=== PATIENT | male | born 1935 | race Caucasian/White ===

== ENCOUNTER → 2017-11-02 | Outpatient (CLI) | payer MEDICARE ==
[2017-11-02 13:02] LABS: Blood Urea Nitrogen 16 mg/dL (9-20)
--- NOTE | 2017-11-02 15:54 | CT ---
EXAMINATION TYPE: CT abdomen pelvis w con DATE OF EXAM: 11/02/2017 COMPARISON: NONE HISTORY: Right sided discomfort and bloating CT DLP: 1396 mGycm Automated exposure control for dose reduction was used. TECHNIQUE: Helical acquisition of images was performed from the lung bases through the pelvis. CONTRAST: Performed with Oral Contrast and with IV Contrast, patient injected with 100 mL of Isovue 300. FINDINGS: LUNG BASES: There is right-sided eventration and elevation of the hemidiaphragm with colonic interpos ition ventral to the anterior hepatic serosal surface on series 3 image 8 and best seen on coronal se balaji 5 image 27. This is typically an incidental finding but could be potentially symptomatic in a pa tient with right-sided abdominal pain and bloating. LIVER/GB: Cholelithiasis is seen with lamellated gallstones in the gallbladder body approaching the g allbladder neck. No common bile duct dilatation is present. PANCREAS: No significant abnormality is seen. No ductal dilatation. SPLEEN: No significant abnormality is seen. No splenomegaly. ADRENALS: No nodularity or thickening. KIDNEYS/PROSTATE/URINARY BLADDER: Partially obstructing right renal calculus within the pelvis is the major calyces converge measures 1 cm. There is right-sided uroepithelial thickening and mild bluntin g of the right-sided calyces and proximal ureter dilatation compatible with mild hydroureteronephrosi s. Additionally there is nodular impression on the urinary bladder by the grossly enlarged and hetero genous prostate gland measuring 8.1 cm in transverse dimension and containing few central zone calcif ications. However the urinary bladder is only mildly distended. There is a 3.4 cm left renal cyst from the superior pole. No left-sided hydronephrosis is seen. Right upper pole 9 mm renal cyst is also present. On delayed images there is a nondependent filling defect within the right ureter beginning within the right renal pelvis on series 7 image 40 and extending inferiorly to image 45. FREE AIR: No free air is visualized. ADENOPATHY: No greater than 1 cm short axis lymph nodes are seen within the abdomen or pelvis. OSSEOUS STRUCTURES: [id number] multilevel degenerative changes of the spine are seen. Moderate femoral acetabular arthropathy is also noted. BOWEL: Duodenal diverticulum is incidentally noted. No bowel dilatation. OTHER: Severe calcific and noncalcific atheromatous changes are seen of the abdominal aorta and its b ranches. Abdominal aorta is of normal course and caliber. IMPRESSION: 1. Partially obstructing right renal pelvic 1 cm calculus, right pelvic and proximal ureteral uroepit helial thickening, nondependent filling defect within the proximal right ureter, and mild right-sided hydroureteronephrosis. The filling defect may represent blood products however, debris, or neoplasm ureteroscopy for retrograde urogram could be performed for further evaluation. Line 2. Extensive enlargement and heterogeneity of the prostate gland measuring up to 8.1 cm with nodular impression upon the urinary bladder. No CT evidence of urinary bladder outlet obstruction. 3. Right hemidiaphragm elevation and colonic interposition, usually incidental finding. 4. Cholelithiasis.
== END | disposition home or self-care (01) ==
LOC: RADCTMAIN 12:24
PROVIDERS: ATTEND Internal Medicine
DX: N20.2 Calculus of kidney with calculus of ureter (principal); N13.30 Unspecified hydronephrosis; N40.0 Benign prostatic hyperplasia without lower urinary tract symptoms; K80.20 Calculus of gallbladder without cholecystitis without obstruction
CPT/HCPCS: 82565; 84520; 74177; 36415; Q9967

== ENCOUNTER → 2019-10-29 | Outpatient (CLI) | payer MEDICARE | END | disposition home or self-care (01) | LOC: LABWHC1 10:09 | PROVIDERS: ATTEND Internal Medicine Gastroenterology | DX: Z11.59 Encounter for screening for other viral diseases (principal) | CPT/HCPCS: 87635 ==

== ENCOUNTER 2019-10-31 07:41 | Day surgery (SDC) | payer MEDICARE ==
[2019-10-29 12:03] VITALS: BMI 23.7
[~2019-10-31 07:41] MED LIST: ACETAMINOPHEN TAB 500 MG TAB PO ONE; HEPARIN SODIUM,PORCINE 5,000 UNIT/ML 1 ML VIAL SQ ONE; Pre Op ABX Message 1 EACH MISC MISCELLANE ONE
[2019-10-31] MEDS ORDERED: LIDOCAINE 1% (10MG/ML) FOR IV START INTRADERMA PRN (07:44)
[2019-10-31] MEDS ORDERED: MIDAZOLAM 2 MG/2 ML VIAL IV PRN (07:44)
[2019-10-31] MEDS ORDERED: HYDROmorphone 0.5 MG/0.5 ML SYRINGE IVP PRN (07:44)
[2019-10-31] MEDS ORDERED: ONDANSETRON 4 MG/2 ML VIAL IVP ONE (07:44)
[2019-10-31] MEDS ORDERED: DEXAMETHASONE SOD PHOSPHATE 10 MG/ML 1 ML VIAL IV ONE (07:44)
[2019-10-31] MEDS ORDERED: LACTATED RINGERS 1,000 ML IV SCH (07:44)
[2019-10-31 08:06] VITALS: TEMP 97.9
--- NOTE | 2019-10-31 09:06 | P.GSHP ---
History of Present Illness H&P Date: 10/31/19 Chief Complaint: Right wrist skin lesion This is an 10-year-old male who's developed a inflamed erythematous dysplastic skin lesion on his right wrist. Patient since they for excision. Past Medical History Past Medical History: Coronary Artery Disease (CAD), Cancer, Diabetes Mellitus, Hyperlipidemia, Prostate Disorder Additional Past Medical History / Comment(s): mass rt wrist, problem with balance, hx kidney stones, hx skin cancer History of Any Multi-Drug Resistant Organisms: None Reported Past Surgical History: Appendectomy, Heart Catheterization With Stent, Hernia Repair Additional Past Surgical History / Comment(s): 5 cardiac stents, lithotripsy for kidney stones, skin cancer removed from face, lurdes cataracts Past Anesthesia/Blood Transfusion Reactions: No Reported Reaction Date of Last Stent Placement:: 2016 Smoking Status: Current every day smoker - Past Family History Mother Family Medical History: Cancer Medications and Allergies Home Medications Medication Instructions Recorded Confirmed Type Atenolol [Tenormin] 50 mg PO DAILY 10/29/19 10/29/19 History Finasteride [Proscar] 5 mg PO DAILY 10/29/19 10/29/19 History Isosorbide Mononitrate ER [Imdur] 60 mg PO DAILY 10/29/19 10/29/19 History Lisinopril [Zestril] 2.5 mg PO DAILY 10/29/19 10/29/19 History Simvastatin [Zocor] 40 mg PO HS 10/29/19 10/31/19 History metFORMIN HCL [Glucophage] 500 mg PO Q48H 10/29/19 10/29/19 History Allergies Allergy/AdvReac Type Severity Reaction Status Date / Time No Known Allergies Allergy Verified 10/31/19 08:07 Surgical - Exam Vital Signs Temp Pulse Resp BP Pulse Ox 97.9 F 83 17 149/75 98 10/31/19 08:05 10/31/19 08:05 10/31/19 08:05 10/31/19 08:05 10/31/19 08:05 - General well developed, well nourished, no distress - Eyes PERRL - ENT normal pinna - Respiratory normal expansion - Cardiovascular Rhythm: regular - Abdomen Abdomen: soft, non tender - Neurologic 3 cm erythematous inflamed skin lesion suspicious for cancer on the right wrist Assessment and Plan Assessment: Suspicious right wrist skin lesion. We'll perform excisional biopsy.
[2019-10-31] MEDS ORDERED: PROPOFOL 10 MG/ML 20 ML VIAL IV ONE (09:21)
[2019-10-31] MEDS ORDERED: BUPIVACAIN-EPI 0.25%-1:200,000 30 ML VIAL SQ ONE (09:25)
--- NOTE | 2019-10-31 09:56 | P.OP ---
Date of Procedure: 10/31/19 Preoperative Diagnosis: Right wrist skin lesion Postoperative Diagnosis: Right wrist skin lesion Procedure(s) Performed: Excisional biopsy right wrist skin lesion Anesthesia: MAC Surgeon: Jarad Marcus Estimated Blood Loss (ml): 5 Pathology: other (Right wrist skin lesion) Condition: stable Disposition: PACU Description of Procedure: The patient's placed on the operating table in the supine position. He received IV sedation. The right wrist skin incision was prepped and draped usual sterile fashion. The skin was anesthetized 1% local Xylocaine. Using a 15 blade the logical skin incision was made around the skin lesion. Lesion was then dissected free using left cautery. The specimens of pathology. The wound was closed with 3-0 nylon. The specimen measured 3 x 2 cm's. Patient was sent to recovery room stable condition.
[2019-10-31 10:48] VITALS: BP 112/51; PULSE 60; RESP 20
== END 2019-10-31 11:07 | disposition home or self-care (01) ==
LOC: OR 07:41
PROVIDERS: ATTEND Surgery
DX: D49.2 Neoplasm of unspecified behavior of bone, soft tissue, and skin (principal); R22.31 Localized swelling, mass and lump, right upper limb; I25.10 Atherosclerotic heart disease of native coronary artery without angina pectoris; E11.9 Type 2 diabetes mellitus without complications; E78.5 Hyperlipidemia, unspecified; N42.9 Disorder of prostate, unspecified; R26.81 Unsteadiness on feet; I25.2 Old myocardial infarction; I10 Essential (primary) hypertension; F17.210 Nicotine dependence, cigarettes, uncomplicated; Z80.9 Family history of malignant neoplasm, unspecified; Z87.442 Personal history of urinary calculi; Z85.828 Personal history of other malignant neoplasm of skin; Z95.5 Presence of coronary angioplasty implant and graft; Z98.890 Other specified postprocedural states; Z98.42 Cataract extraction status, left eye; Z98.41 Cataract extraction status, right eye; Z79.84 Long term (current) use of oral hypoglycemic drugs; Z97.2 Presence of dental prosthetic device (complete) (partial); Z79.899 Other long term (current) drug therapy
CPT/HCPCS: 11404; 88305; J1100; J2405; J2704

== ENCOUNTER → 2019-11-21 | Day surgery (SDC) | payer MEDICARE ==
[2019-11-19 11:08] VITALS: BMI 23.7
[~2019-11-21] MED LIST changes: -ACETAMINOPHEN TAB 500 MG TAB PO ONE; +DEXAMETHASONE SOD PHOSPHATE 10 MG/ML 1 ML VIAL IV ONE; -HEPARIN SODIUM,PORCINE 5,000 UNIT/ML 1 ML VIAL SQ ONE; +HYDROmorphone 0.5 MG/0.5 ML SYRINGE IVP PRN; +LACTATED RINGERS 1,000 ML IV ONE; +LACTATED RINGERS 1,000 ML IV SCH; +LIDOCAINE 1% (10MG/ML) FOR IV START INTRADERMA PRN; +MIDAZOLAM 2 MG/2 ML VIAL IV PRN; +ONDANSETRON 4 MG/2 ML VIAL IVP ONE; +fentaNYL (PF) 50 MCG/ML 2 ML AMP IV PRN
[2019-11-21 11:45] LABS: Glucose,Whole Blood 141 mg/dL (75-99)
[2019-11-21 12:00] VITALS: BP 160/70; PULSE 70; RESP 16; TEMP 97.8
== END | disposition home or self-care (01) ==
LOC: OR 11:01
PROVIDERS: ATTEND Plastic Surgery
DX: C76.41 Malignant neoplasm of right upper limb (principal); R22.9 Localized swelling, mass and lump, unspecified; Z53.8 Procedure and treatment not carried out for other reasons
CPT/HCPCS: J1100; J2405

== ENCOUNTER 2019-12-02 09:46 | Day surgery (SDC) | payer MEDICARE ==
[2019-11-28 14:15] VITALS: BMI 23.7
[~2019-12-02 09:46] MED LIST changes: -DEXAMETHASONE SOD PHOSPHATE 10 MG/ML 1 ML VIAL IV ONE; -HYDROmorphone 0.5 MG/0.5 ML SYRINGE IVP PRN; -LACTATED RINGERS 1,000 ML IV ONE; -LIDOCAINE 1% (10MG/ML) FOR IV START INTRADERMA PRN; -MIDAZOLAM 2 MG/2 ML VIAL IV PRN; -Pre Op ABX Message 1 EACH MISC MISCELLANE ONE
[2019-12-02 10:25] VITALS: RESP 16
[2019-12-02 10:37] LABS: Glucose,Whole Blood 149 mg/dL (75-99)
[2019-12-02] MEDS ORDERED: MIDAZOLAM 2 MG/2 ML VIAL ONE (10:45)
[2019-12-02] MEDS ORDERED: PROPOFOL 10 MG/ML 20 ML VIAL IV ONE (10:45)
[2019-12-02] MEDS ORDERED: fentaNYL (PF) 50 MCG/ML 2 ML AMP ONE (10:45)
[2019-12-02] MEDS ORDERED: PHENYLEPHRINE-0.9% NACL SYG 1 MG/10 ML SYRINGE ONE (10:45)
[2019-12-02] MEDS ORDERED: ePHEDrine SULFATE/0.9% NACL/PF 50 MG/5 ML SYRINGE IV ONE (10:45)
[2019-12-02] MEDS ORDERED: SUCCINYLCHOLINE CHLORIDE 100 MG/5 ML SYR IV ONE (10:45)
[2019-12-02] MEDS ORDERED: LIDOCAINE 1% INJ 10MG/ML (20 ML MDV) ONE (10:45)
[2019-12-02] MEDS ORDERED: ceFAZolin 1,000 MG VIAL IVPB ONE (11:14)
[2019-12-02 12:18] VITALS: TEMP 96.9
[2019-12-02 13:52] VITALS: BP 118/58; PULSE 77
--- NOTE | 2019-12-02 17:30 | OP ---
OPERATIVE REPORT DATE OF SURGERY: 12/02/2019. SURGEON: Dr. Wilman Callejas PREOPERATIVE DIAGNOSES: 1. Squamous cell carcinoma, right wrist. 2. Left middle finger lesion. POSTOPERATIVE DIAGNOSES: 1. Squamous cell carcinoma, right wrist. 2. Left middle finger lesion. OPERATIVE PROCEDURES: 1. Wide excision of squamous cell carcinoma of the right wrist. 2. Application of substitute skin graft, right wrist, 24 square cm. 3. Excision 5 mm left middle finger skin lesion with direct repair. OPERATIVE INDICATIONS: The patient is an 84-year-old male referred to my care after he underwent excision of a lesion of his right wrist that pathology revealed to be squamous cell skin cancer with positive margins. The patient was seen and evaluated in the office for this lesion and counseled to undergo wide excision today with additional margins and, due to the location and size, required surgery. Direct closure was not possible. A substitute skin graft will be placed and likely followed by delayed split-thickness skin graft for closure. Additionally, the patient requested treatment for a left middle finger skin lesion that has been present for several months. He feels he may have injured himself with a thorn, but cannot be sure; he has not had other lesions of this kind. It enlarged to a point that has not changed. He understands this lesion will undergo direct excision with primary closure. He understands there are potential risks and complications associated with surgery and has requested I perform today's surgeries. OPERATIVE PROCEDURE SUMMARY: The patient was seen in the presurgical area, markings made, procedure reviewed, all questions answered. He was transported to the operating room, where general endotracheal anesthesia was established. He was then prepped and draped in the usual fashion. The left middle finger skin lesion was excised first. It was located just distal to the DIP joint on the radial aspect of the left middle finger measuring 5 mm in diameter. It was outlined in elliptical fashion and directly excised after first prepping and draping. Once prepping and draping was completed, the lesion was excised in elliptical fashion with a 15-blade scalpel and sent to Pathology. Hemostasis was maintained with direct pressure. Then this site was primarily closed with interrupted 5-0 Prolene, cleansed with saline, and a Band-Aid placed for postoperative bandage. The patient's right upper extremity was now prepped and draped in sterile fashion. The right wrist cancer biopsy site was located on the dorsal ulnar side and measured 4 x 2 square cm, encompassing the central wound with stitches remaining, surrounding erythema. A margin was obtained around the lesion of 1 cm. The excision area measured 6 x 4 square cm. Using a 10-blade scalpel, full-thickness skin incision was made. Then using the scalpel and cautery dissection, the lesion was excised off the underlying muscle fascial layer and sent to Pathology. The lesion was oriented for evaluation with a short suture placed distal and a long suture placed ulnar. Hemostasis in the wound bed was maintained with cauterization and direct pressure. Excellent hemostasis was obtained. Irrigation was performed. The open wound measured 6 x 4 square cm. The planned Integra bilaminar wound matrix was unfortunately unavailable at the time of surgery. SurgiMend Thin was opened on the field. The product was revitalized with room-temperature saline. Once the product measured 4 x 7 square cm, the SurgiMend was applied to the open wound bed and secured using interrupted 5-0 Prolene suture, trimming this SurgiMend to optimize the inset. This was followed by placement of a postoperative graft bandage using the silicone contact layer bolster with Aquacel Ag followed by 4 x 4 secured Kerlix wrap and Tripp from hand to just below elbow. Then the patient was awakened from his anesthetic, extubated and transferred to the recovery room in good condition with stable vital signs. The estimated blood loss was 10 mL. There were no complications. MMODL / IJN: [id number] /
== END 2019-12-02 14:32 | disposition home or self-care (01) ==
LOC: OR 09:46
PROVIDERS: ATTEND Plastic Surgery
DX: C44.622 Squamous cell carcinoma of skin of right upper limb, including shoulder (principal); B07.9 Viral wart, unspecified; I25.10 Atherosclerotic heart disease of native coronary artery without angina pectoris; E11.9 Type 2 diabetes mellitus without complications; F17.210 Nicotine dependence, cigarettes, uncomplicated; K08.109 Complete loss of teeth, unspecified cause, unspecified class; I10 Essential (primary) hypertension; E78.5 Hyperlipidemia, unspecified; Z90.49 Acquired absence of other specified parts of digestive tract; Z98.890 Other specified postprocedural states; Z95.5 Presence of coronary angioplasty implant and graft; Z87.442 Personal history of urinary calculi; Z79.899 Other long term (current) drug therapy; Z79.84 Long term (current) use of oral hypoglycemic drugs
CPT/HCPCS: 11420; 11626; C5271; C5272; 88305

== ENCOUNTER 2020-05-25 23:21 | Emergency (ER) | payer MEDICARE ==
--- NOTE | 2020-05-26 00:06 | ED ---
Male Urogenital HPI - General Chief complaint: Urogenital Stated complaint: Urine Retention Time Seen by Provider: 05/25/20 23:28 Source: patient Mode of arrival: ambulatory Limitations: no limitations - History of Present Illness Initial comments: 84-year-old male patient presents to the emergency department today for evaluation of urinary retention. Patient states he's been having difficulty urinating since early this morning. States he has had some small amounts of urine output but it has decreased drastically this evening. States he is having a lot of discomfort to the lower abdomen into the penis. Denies any swelling to the testicles. Denies any hematuria. Denies history of similar symptoms. He denies any nausea, vomiting, constipation, or diarrhea. Denies any fever or chills. Denies chest pain or trouble breathing. Patient denies any recent rash, cough, shortness of breath, chest pain, back pain, numbness, tingling, dizziness, weakness, headache, visual changes, or any other complaints. - Related Data Home Medications Medication Instructions Recorded Confirmed Finasteride [Proscar] 5 mg PO DAILY 10/29/19 11/28/19 Isosorbide Mononitrate ER [Imdur] 60 mg PO DAILY 10/29/19 11/28/19 Simvastatin [Zocor] 40 mg PO HS 10/29/19 12/02/19 atenoloL [Tenormin] 50 mg PO DAILY 10/29/19 11/28/19 lisinopriL [Zestril] 2.5 mg PO DAILY 10/29/19 11/28/19 metFORMIN HCL [Glucophage] 500 mg PO Q48H 10/29/19 12/02/19 Previous Rx's Medication Instructions Recorded HYDROcodone/APAP 5-325MG [[place] 1 tab PO Q6HR PRN 7 Days #28 tab 12/02/19 5-325] Allergies Allergy/AdvReac Type Severity Reaction Status Date / Time No Known Allergies Allergy Verified 05/25/20 23:27 Review of Systems ROS Statement: Those systems with pertinent positive or pertinent negative responses have been documented in the HPI. ROS Other: All systems not noted in ROS Statement are negative. Past Medical History Past Medical History: Coronary Artery Disease (CAD), Cancer, Diabetes Mellitus, Hyperlipidemia, Prostate Disorder Additional Past Medical History / Comment(s): hx mass rt wrist, problem with balance, hx kidney stones, hx skin cancer History of Any Multi-Drug Resistant Organisms: None Reported Past Surgical History: Appendectomy, Heart Catheterization With Stent, Hernia Repair Additional Past Surgical History / Comment(s): 5 cardiac stents, lithotripsy for kidney stones, skin cancer removed from face, lurdes cataracts, removal of mass from rt wrist Past Anesthesia/Blood Transfusion Reactions: No Reported Reaction Date of Last Stent Placement:: 2016 Past Psychological History: No Psychological Hx Reported Smoking Status: Current every day smoker Past Alcohol Use History: Daily Past Drug Use History: None Reported - Past Family History Mother Family Medical History: Cancer General Exam Limitations: no limitations General appearance: alert, in no apparent distress, other (This is a well- developed, well-nourished male patient in no acute distress. Vital signs upon presentation are temperature 98.5F, pulse 82, respirations 16, blood pressure 191/88, pulse ox 95% on room air.) Eye exam: Present: normal appearance, PERRL, EOMI. Absent: scleral icterus, conjunctival injection, periorbital swelling ENT exam: Present: normal exam, normal oropharynx, mucous membranes moist Respiratory exam: Present: normal lung sounds bilaterally. Absent: respiratory distress, wheezes, rales, rhonchi, stridor Cardiovascular Exam: Present: regular rate, normal rhythm, normal heart sounds. Absent: systolic murmur, diastolic murmur, rubs, gallop, clicks GI/Abdominal exam: Present: soft, tenderness (Suprapubic), normal bowel sounds. Absent: distended, guarding, rebound, rigid Neurological exam: Present: alert, oriented X3, CN II-XII intact Psychiatric exam: Present: normal affect, normal mood Skin exam: Present: warm, dry, intact, normal color. Absent: rash Course Vital Signs 05/25/20 23:23 Temperature 98.5 F Pulse Rate 82 Respiratory 16 Rate Blood Pressure 191/88 O2 Sat by Pulse 95 Oximetry Medical Decision Making - Medical Decision Making 84-year-old male patient presented to the emergency department today for evaluation of urinary retention with suprapubic abdominal discomfort and penile discomfort. Physical examination did reveal suprapubic tenderness. Bladder scan was performed and showed greater than 800 mL present. Faust catheter was inserted patient did have on 700 mL of output. A Faust catheter in place and discharge him to follow-up with urologist. He is afebrile. Urinalysis did show some red blood cells mostly related from traumatic insertion. He is instructed to call the urologist in the morning for an appointment. He is instructed to follow-up with his primary care physician for recheck in 1-2 days. Return parameters were discussed in detail. He verbalizes understanding and agree with this plan. - Lab Data Lab Results 05/26/20 Range/Units 00:11 Urine Color Yellow Urine Appearance Clear (Clear) Urine pH 6.5 (5.0-8.0) Ur Specific [place] 1.014 (1.001-1.035) Urine Protein Negative (Negative) Urine Glucose (UA) 1+ H (Negative) Urine Ketones Negative (Negative) Urine Blood Moderate H (Negative) Urine Nitrite Negative (Negative) Urine Bilirubin Negative (Negative) Urine Urobilinogen <2.0 (<2.0) mg/dL Ur Leukocyte Esterase Negative (Negative) Urine RBC 65 H (0-5) /hpf Urine WBC 1 (0-5) /hpf Urine Bacteria Rare H (None) /hpf Hyaline Casts 1 (0-2) /lpf Urine Mucus Occasional H (None) /hpf Disposition Clinical Impression: Urinary retention Disposition: HOME SELF-CARE Condition: Good Instructions (If sedation given, give patient instructions): Urinary Retention in Men (ED), Faust Catheter Placement and Care (ED) Additional Instructions: Increase fluids. Follow-up with urologist for further evaluation as soon as possible. Follow up to primary care physician for recheck in 1-2 days. Return to the emergency department immediately for any new, worsening, or concerning symptoms. Is patient prescribed a controlled substance at d/c from ED?: No Referrals: Farrah Beth NPC [Primary Care Provider] - 1-2 days Ulises Murphy MD [STAFF PHYSICIAN] - 1-2 days Time of Disposition: 00:32
[2020-05-26 00:30] LABS: Appearance,Urine Clear (Clear); Bacteria,Urine Rare /hpf; Bilirubin,Urine Negative (Negative); Blood,Urine Moderate (Negative); Color,Urine Yellow; Glucose,Urine (UA) 1+ (Negative); Hyaline Casts,Urine 1 /lpf (0-2); Ketones,Urine Negative (Negative); Leukocyte Esterase,Urine Negative (Negative); Mucus,Urine Occasional /hpf; Nitrite,Urine Negative (Negative); PH, Urine 6.5 (5.0-8.0); Protein,Urine Negative (Negative); RBC,Urine 65 /hpf (0-5); Specific Gravity,Urine 1.014 (1.001-1.035); Urobilinogen,Urine <2.0 mg/dL (<2.0); WBC,Urine 1 /hpf (0-5)
[2020-05-26 01:23] VITALS: RESP 18
[2020-05-26] MEDS ORDERED: KETOROLAC 15 MG/ML 1 ML VIAL IM STA (01:29)
[2020-05-26 01:38] VITALS: BP 151/99; PULSE 88; TEMP 98.6
== END 2020-05-26 01:22 | disposition home or self-care (01) ==
LOC: EC 23:21
DX: R33.9 Retention of urine, unspecified (principal); I25.10 Atherosclerotic heart disease of native coronary artery without angina pectoris; E11.9 Type 2 diabetes mellitus without complications; E78.5 Hyperlipidemia, unspecified; F17.200 Nicotine dependence, unspecified, uncomplicated; Z79.84 Long term (current) use of oral hypoglycemic drugs; Z79.899 Other long term (current) drug therapy; Z95.5 Presence of coronary angioplasty implant and graft
CPT/HCPCS: 51702; 81001; 99284